=== PATIENT | male | born 1965 | race Caucasian/White ===

== ENCOUNTER 2016-04-13 20:04 | Emergency (ER) | payer BC ==
[2016-04-13] MEDS ORDERED: KETOROLAC 30 MG/ML VIAL ONE (22:27)
[2016-04-13] MEDS ORDERED: ONDANSETRON 4 MG VIAL ONE (22:27)
[2016-04-13] MEDS ORDERED: MORPHINE 4 MG/ML SYR ONE (23:34)
[2016-04-13] MEDS ORDERED: ORPHENADRINE 60 MG/2 ML AMP ONE (23:35)
== END 2016-04-14 00:23 | disposition home or self-care (01) ==
LOC: ER 20:04
DX: M54.12 Radiculopathy, cervical region (principal); S16.1XXA Strain of muscle, fascia and tendon at neck level, initial encounter; S46.812A Strain of other muscles, fascia and tendons at shoulder and upper arm level, left arm, initial encounter; F17.210 Nicotine dependence, cigarettes, uncomplicated
CPT/HCPCS: 36415; 72050; 80053; 84484; 85025; 93005; 96374; 96375